=== PATIENT | female | born 1995 | race Caucasian/White ===

== ENCOUNTER → 2022-07-10 | Outpatient (CLI) | payer OTHER ==
--- NOTE | 2022-07-10 16:10 | US ---
EXAMINATION TYPE: Transabdominal DATE OF EXAM: 07/10/2022 3:35 PM COMPARISON: NONE CLINICAL HISTORY: Z36.89 CONFIRM GESTATIONAL AGE AND VIABILITY. EXAM PERFORMED: Transabdominal (TA) EXAM MEASUREMENTS: GESTATIONAL AGE / DATING Physician Established: (11 weeks/4 days) EDC: 01/25/2023 Dates by LMP: (11 weeks/4 days) EDC: 01/25/2023 Dates by First Scan: No previous this is first scan Dates by Current Scan for: (12 weeks/3 days) EDC: 01/19/2023 MATERNAL ANATOMY Uterus: 15.0 x 5.8 x 10.1cm Right Ovary: 2.4 x 1.5 x 1.6cm Left Ovary: 2.1 x 0.9 x 1.8cm Post CDS / Adnexa: wnl Presence of free fluid: no Presence of corpus luteal cyst: not seen Presence of subchorionic bleed: no GESTATION / SURVEY CRL: 5.8cm (12 weeks/3 days) Yolk Sac (normal less than 6mm): not seen Heart Rate: 169 bpm Rhythm: Normal IUP: Viable IUP Date of LMP: 04/20/2022 Beta HcG (if available): Not available at time of exam IMPRESSION: 1. Single intrauterine gestation estimated at 12 weeks 3 days gestation based on crown-rump length. C ardiac activity measuring 169 bpm.
== END | disposition home or self-care (01) ==
LOC: RADUSWWP 15:07
PROVIDERS: ATTEND Obstetrics & Gynecology
DX: Z36.89 Encounter for other specified antenatal screening (principal); Z3A.12 12 weeks gestation of pregnancy
CPT/HCPCS: 76801

== ENCOUNTER 2023-01-01 03:05 | Inpatient (IN) | payer OTHER ==
[2023-01-01] MEDS ORDERED: hydrALAZINE HCL 20 MG/ML 1 ML VIAL IVP PRN (03:50)
[2023-01-01] MEDS ORDERED: LABETALOL 5 MG/ML VIAL MDV IVP PRN ×3 (03:50)
[2023-01-01] MEDS ORDERED: MAGNESIUM SULFATE GM 6 GM in SODIUM CHLORIDE 0.9% 100 ML IVPB ONE (04:00)
[2023-01-01] MEDS: LACTATED RINGERS 1,000 ML IV SCH ×2 (04:36→15:20)
[2023-01-01 04:57] LABS: Basophils % (A) 0 %; Eosinophils # (A) 0.1 k/uL (0-0.7); Eosinophils % (A) 1 %; HCT 36.2 % (34.0-46.0); HGB 11.7 gm/dL (11.4-16.0); Lymphocytes # (A) 1.8 k/uL (1.0-4.8); Lymphocytes % (A) 10 %; MCH 28.6 pg (25.0-35.0); MCHC 32.4 g/dL (31.0-37.0); MCV 88.4 fL (80.0-100.0); Mean Platelet Volume 7.6; Monocytes % (A) 6 %; Neutrophils # (A) 13.6 k/uL (1.3-7.7); Neutrophils % (A) 81 %; Platelet Count 298 k/uL (150-450); RDW 13.2 % (11.5-15.5); WBC 16.7 k/uL (3.8-10.6)
[2023-01-01 05:00] LABS: Appearance,Urine Clear (Clear); Bilirubin,Urine Negative (Negative); Blood,Urine Negative (Negative); Color,Urine Light Yellow; Glucose,Urine (UA) Negative (Negative); Ketones,Urine Negative (Negative); Leukocyte Esterase,Urine Negative (Negative); Nitrite,Urine Negative (Negative); Protein,Urine Negative (Negative); Specific Gravity,Urine 1.006 (1.001-1.035); Urobilinogen,Urine <2.0 mg/dL (<2.0)
[2023-01-01] MEDS: MAGNESIUM SULFATE-WATER PMX 20 GM in WATER FOR INJECTION 1 500ML.BAG IV SCH ×2 (05:04→15:20)
[2023-01-01 05:10] LABS: INR 0.9 (<1.2); Prothrombin Time 9.6 sec (9.0-12.0)
[2023-01-01 05:12] LABS: ALT 19 U/L (4-34); African American GFR (CKD) >90 (>60 ml/min/1.73 sqM); Blood Urea Nitrogen 11 mg/dL (7-17); Non-African American GFR(CKD) >90 (>60 ml/min/1.73 sqM); Uric Acid 4.9 mg/dL (3.7-7.4)
[2023-01-01 05:14] LABS: Creatinine,Urine Random 26.5 mg/dL; Protein/Creatinine Ratio,Urine 0.415
[2023-01-01 05:22] LABS: AST 30 U/L (14-36); LDH 254 U/L (120-246)
[2023-01-01] MEDS ORDERED: OXYTOCIN 30 UNITS/500 ML NS 30 UNIT in SALINE 1 500ML.BAG IV SCH (06:15)
[2023-01-01] MEDS: BETAMET ACET-BETAMETH SOD PHOS 6 MG/ML MDV IM SCH (06:25)
[2023-01-01] MEDS ORDERED: DINOPROSTONE 10 MG INSERT.ER VAGINAL ONE (07:09)
--- NOTE | 2023-01-01 07:25 | P.HPOB ---
History of Present Illness H&P Date: 01/01/23 Chief Complaint: Hypertension This patient is a pleasant 27-year-old 1 para 0 female estimated date of confinement 01/25/2023 estimated gestational age 36-4/7 weeks who is admitted last evening by Dr. Jackson for hypertension. Patient states that she checked her blood pressure home was elevated 140/90. Patient subsequently came to labor and delivery was found to have significant blood pressure elevations consistent with severe criteria preeclampsia. Patient was given a dose of Celestone, placed on magnesium sulfate and was felt to be dilated 2 cm at the time so induction with Pitocin started. Cervix however my exam is closed, unable to break her water. care has been complicated by a questionable pericardial fluid seen at 26 weeks, however patient was referred to maternal- medicine and had a normal level III including heart views. Most recent ultrasound showed baby 6 lbs. 2 oz. with a mild left renal pelvis dilation of 10 mm. Patient's having some swelling but otherwise feeling fine. She is received 2 doses of antihypertensives and blood pressures now are within normal limits. Review of Systems Constitutional: Reports as per HPI Genitourinary: Reports Menstruation: Reports amenorrhea Past Medical History Past Medical History: No Reported History History of Any Multi-Drug Resistant Organisms: None Reported Past Surgical History: Cholecystectomy Past Anesthesia/Blood Transfusion Reactions: No Reported Reaction Past Psychological History: No Psychological Hx Reported Smoking Status: Never smoker Past Alcohol Use History: None Reported Past Drug Use History: None Reported Medications and Allergies Home Medications Medication Instructions Recorded Confirmed Type Vit No.179/Iron/Folic 1 each PO DAILY 01/01/23 01/01/23 History [ Tablet] Allergies Allergy/AdvReac Type Severity Reaction Status Date / Time No Known Allergies Allergy Verified 01/01/23 03:41 Exam Vital Signs Temp Pulse Resp BP Pulse Ox 01/01/23 06:15 96 16 136/79 01/01/23 05:15 106 H 16 157/82 01/01/23 05:00 103 H 160/107 01/01/23 04:45 93 16 145/92 99 01/01/23 04:30 98.4 F 104 H 16 144/92 99 01/01/23 03:30 97.4 F L 102 H 16 144/100 100 Intake and Output 12/31/22 01/01/23 01/01/23 22:59 06:59 14:59 Other: Weight 90.718 kg - OBG Physical Exam Abdomen: bowel sounds normal, no diffuse tenderness, no bruit present, no guarding noted, no hepatomegaly, no splenomegaly, no mass Vulva: both: normal Vagina: normal moisture, no discharge Cervix: no lesion (Cervix is closed and thick), no discharge Uterus: enlarged (Fundal height the office 37 cm) Results labs show she is B+, rubella nonimmune, RPR is nonreactive, hepatitis B and C were negative, HIV is nonreactive, Glucola was abnormal with a normal three-hour gtt., group B strep was negative, most recent ultrasound done last week showed the baby vertex 6 lbs. 2 oz. with some mild left renal pelvis dilation 10 mm Result Diagrams: 01/01/23 04:40 01/01/23 04:40 Abnormal Lab Results - Last 24 Hours (Table) 01/01/23 01/01/23 01/01/23 Range/Units 04:40 04:40 04:40 WBC 16.7 H (3.8-10.6) k/uL Neutrophils # 13.6 H (1.3-7.7) k/uL APTT 20.0 L (22.0-30.0) sec Lactate Dehydrogenase 254 H (120-246) U/L Assessment and Plan (1) 36 to 37 weeks gestation of Current Visit: Yes Status: Acute Code(s): [id number] - SNOMED Code(s): 3663 82539 (2) Severe pre-eclampsia Current Visit: Yes Status: Acute Code(s): O14.10 - SEVERE PRE-ECLAMPSIA, UNSPECIFIED TRIMESTER SNOMED Code(s): 60532779
--- NOTE | 2023-01-01 08:08 | P.MSEPDOC ---
Presenting Problems - Arrival Data Date of Arrival on Unit: 01/01/23 Time of Arrival on Unit: 03:05 Mode of Transport: Ambulatory - Complaint OB-Reason for Admission/Chief Complaint: Elevated Blood Pressure Comment: Dr. Jackson returned page. RN reported on maternal and status. contractions,. and vitals. RN reported to Dr. Jackson patient elevated BP 144/100 and elevated HR 102. New orders recieved to admit the patient, intitiate PreEclampsia protocol, 6G. mag bolus and 2G/hr after bolus. PIH labs drawn and urinalysis sent. Medical History - Information : 1 Para: 0 Term: 0 : 0 Abortions: Spontaneous or Elective: 0 Number of Living Children: 0 - Gestational Age Gestational Age by NAIF (wks/days): 36 Weeks and 4 Days Review of Systems - Review of Systems Constitutional: No problems Breast: No problems ENT: No problems Cardiovascular: No problems Respiratory: No problems Gastrointestinal: No problems Genitourinary: No problems Musculoskeletal: No problems Neurological: No problems Skin: No problems Vital Signs - Temperature Temperature: 98.4 F Temperature Source: Temporal Artery Scan - Pulse Pulse Oximetery Pulse Rate: 96 Pulse Assessment Method: Pulse Oximetry - Respirations Respiratory Rate: 16 Oxygen Delivery Method: Room Air - Blood Pressure Right Arm Blood Pressure: 136/79 Blood Pressure Mean: 98 Blood Pressure Source: Automatic Cuff Medical Screen Scoring - Assessment - Baby A Baseline FHR: 135 Heart Rate - NICHD Category: Category I (Normal) NST: Reactive Physician Notification - Physician Notified Physician Notified Date: 01/01/23 Physician Notified Time: 03:40 Physician: Dr. Jackson New Order Received: Yes (Admit, PIH workup) Maternal Triage Index - Maternal Triage Index Presenting for scheduled procedure w/no complaint: No - Stat/Priority 1 Stat Priority 1: No - Urgent/Priority 2 Urgent Priority 2: Yes Provider Notified: Dr. aJckson Provider Notified Time: 03:40 Criteria Met for Priority 2: Dr. Jackson returned page. RN reported on maternal and status. contractions,. and vitals. RN reported to Dr. Jackson patient elevated BP 144/100 and elevated HR 102. New orders recieved to admit the patient, intitiate PreEclampsia protocol, 6G. mag bolus and 2G/hr after bolus. PIH labs drawn and urinalysis sent. Disposition - Disposition OB Disposition: Admit I agree with the RN Medical Screening Exam: Yes Case reviewed; plan agreed upon as documented in EMR&OBIX.: Yes Diagnosis: SEVERE PRE-ECLAMPSIA, THIRD TRIMESTER
[2023-01-01] MEDS ORDERED: BUTORPHANOL 2 MG/ML 1 ML VIAL IV PRN (16:45)
--- NOTE | 2023-01-01 16:49 | P.PN ---
Progress Note - Text Progress Note Date: 01/01/23 heart tones are category 1. Blood pressures are stable 140s over 80s to 90s. I rechecked her cervix is fingertip but softer and patient is just becoming uncomfortable. Plan at this time is Dr. Yancey we'll recheck her in 2 hours when the Cervidil is completed. If able she'll proceed with artificial rupture membranes and Pitocin induction. Her cervix remains unfavorable we did discuss possible after the Celestone is completed. All the patient's questions are answered and she agrees with the clinical plan.
[2023-01-01] MEDS: ONDANSETRON 4 MG/2 ML VIAL IVP PRN ×2 (16:56→23:37)
[2023-01-02] MEDS: BETAMET ACET-BETAMETH SOD PHOS 6 MG/ML MDV IM SCH (00:23)
[2023-01-02] MEDS ORDERED: ACETAMINOPHEN IV (For NPO) 1,000 MG in EMPTY BAG 1 BAG IVPB ONE (00:37)
[2023-01-02] MEDS: MAGNESIUM SULFATE-WATER PMX 20 GM in WATER FOR INJECTION 1 500ML.BAG IV SCH ×3 (00:46→22:33)
[2023-01-02] MEDS: LACTATED RINGERS 1,000 ML IV SCH ×3 (03:07→20:43)
[2023-01-02] MEDS ORDERED: CITRIC ACID-SODIUM CITRATE 15 ML CUP PO ONE (06:19)
[2023-01-02] MEDS ORDERED: CARBOPROST TROMETHAMINE 250 MCG/ML 1 ML AMP IM PRN (06:19)
[2023-01-02] MEDS ORDERED: TRANEXAMIC ACID IN NACL,ISO-OS 1,000 MG in EMPTY BAG 1 BAG IV PRN (06:19)
[2023-01-02] MEDS ORDERED: OXYTOCIN 10 UNIT/ML 1 ML VIAL IM PRN (06:19)
[2023-01-02] MEDS ORDERED: miSOPROStoL 200 MCG TAB PO PRN (06:19)
--- NOTE | 2023-01-02 06:24 | P.PN ---
Progress Note - Text Progress Note Date: 01/02/23 Hospital day #2. Patient's Cervidil was removed last evening cervix is still not dilated. Blood pressures remain stable. heart tones are category 1. I discuss delivery plan at this time with the patient and since she has failed induction were going to proceed with section this time. Explained the procedure and risks. All patient questions are answered and a written consent is obtained.
[2023-01-02] MEDS ORDERED: ONDANSETRON 4 MG/2 ML VIAL ONE (07:14)
[2023-01-02] MEDS ORDERED: KETOROLAC 15 MG/ML 1 ML VIAL ONE (07:14)
[2023-01-02] MEDS ORDERED: fentaNYL (PF) 50 MCG/ML 2 ML AMP ONE (07:14)
[2023-01-02] MEDS ORDERED: DEXAMETHASONE SOD PHOSPHATE 4 MG/ML 1 ML VIAL ONE (07:14)
[2023-01-02] MEDS ORDERED: OXYTOCIN 10 UNIT/ML 1 ML VIAL ONE (07:14)
[2023-01-02] MEDS ORDERED: OXYTOCIN 30 UNITS/500 ML NS BAG IV ONE (07:14)
[2023-01-02] MEDS ORDERED: MORPHINE SULFATE (PF) 0.3 MG/0.3 ML SYR ONE (07:14)
[2023-01-02] MEDS ORDERED: diphenhydrAMINE 25 MG CAP PO PRN (08:04)
[2023-01-02] MEDS ORDERED: ONDANSETRON 4 MG/2 ML VIAL IVP PRN (08:04)
[2023-01-02] MEDS ORDERED: diphenhydrAMINE 50 MG/ML 1 ML VIAL IVP PRN (08:04)
[2023-01-02] MEDS ORDERED: NALOXONE 0.4 MG/ML 1 ML VIAL IV PRN ×2 (08:04→08:07)
[2023-01-02] MEDS ORDERED: OXYTOCIN 30 UNITS/500 ML NS 30 UNIT in SALINE 1 500ML.BAG IV SCH (08:04)
[2023-01-02] MEDS ORDERED: METOCLOPRAMIDE 5 MG/ML 2 ML VIAL IVP PRN (08:04)
[2023-01-02] MEDS ORDERED: LANOLIN CREAM 5 GM TUBE TOPICAL PRN (08:04)
[2023-01-02] MEDS ORDERED: ZOLPIDEM 5 MG TAB PO PRN (08:04)
[2023-01-02] MEDS ORDERED: MORPHINE SULFATE 2 MG/ML SYRINGE IVP PRN (08:07)
--- NOTE | 2023-01-02 08:08 | P.OP ---
Date of Procedure: 01/02/23 Preoperative Diagnosis: #1: 36-5/7 week intrauterine . #2: Preeclampsia with severe features. #3: Failed induction of labor Postoperative Diagnosis: Same Procedure(s) Performed: Primary low transverse section Anesthesia: spinal Surgeon: Elian Platt Shuttler #1: Samara Yancey Estimated Blood Loss (ml): 600 Pathology: other (Placenta) Condition: stable Disposition: floor Indications for Procedure: Please see dictated H&P for intimate details on this patient's admission. In brief summary this is a pleasant 27-year-old 1 para 0 female 36-5/7 weeks gestation who is admitted to labor and delivery yesterday for hyperten vi. Patient is diagnosed with preeclampsia with severe features and requires IV antihypertensives. Patient is placed on magnesium sulfate and has an unfavorable cervix therefore Cervidil was placed. Unfortunately the Cervidil does not produce any dilation of the cervix at this time is decided to proceed with delivery by section. Patient did receive 24 hours of Celestone. Patient does understand the surgery and risks and risks of infection, bleeding, possible injury bowel, bladder, vessels, and/or other organs. All the patient's questions are answered and a written consent is obtained. Operative Findings: This is a vigorous viable female Apgars 7 and 9 delivery time was 0734 hours. Infant has spontaneous respirations and good cry and grossly appears normal. Description of Procedure: This patient has a Parra catheter placed to straight drain. She is subsequently taken to the operating room where she sat up and spinal anesthetic is administered without incident. After the appropriate timeout, scalpels taken Pfannenstiel skin incision is made. A second scalpel is taken down the fascia the fascia scored with a knife. Fascial incision extended bilaterally using the Marc scissors. Fascia is then dissected off the rectus muscles sharply. Rectus muscles are the peritoneum identified and entered sharply. Peritoneal incision extended superior and inferior without difficulty. Bladder blade is then placed. Bladder peritoneum was taken sharply off the lower uterine segment. Scalpels and taken low transverse uterine incision is then made. Using a hemostat I enter the uterine cavity bluntly. There is loss of clear fluid. With this done the incision is then extended bluntly. Infant's head is then guided through the incision with fundal pressure delivered. Mouth and nares are bulb suctioned. There is no evidence of a nuchal cord. With more fundal pressure delivers the rest this infant's body. This is a vigorous viable female Apgars are 7 and 9 delivery time is 0734 hours. After delivery of the infant the is handed off to the nurses in attendance. The placenta i s then manually extracted intact. Uterus is then externalized uterine incision demarcated with Gill clamps. Uterine incision then closed using 0 Vicryl running locked fashion 2 layers. Excellent hemostasis is noted. One additional [id number] stitches placed in the midline for added hemostasis. Bladder peritoneum was then closed using a 3-0 Vicryl. Excess fluid is removed from the abdomen and pelvis. The uterus placed back in the abdomen. Uterus, tubes, ovaries appear normal for term gestation. The parietal peritoneum was then identified and closed using 0 Vicryl running fashion. Rectus muscle reapproximate 0 Vicryl interrupted fashion. Fascial incision closed using 0 PDS. Fascial incision is intact and hemostatic. Subcutaneous tissues and closed using a 3-0 Vicryl. Skin is and closed using aleida. All counts are correct 3. There are no complications. Infant is taken special care nursery for observation mother is taken to her birthing suite in satisfactory condition.
[2023-01-02] MEDS: ACETAMINOPHEN TAB 500 MG TAB PO SCH ×3 (13:34→22:34)
[2023-01-02] MEDS: SENNOSIDES-DOCUSATE SODIUM 1 EACH TAB PO SCH ×2 (13:36→20:50)
[2023-01-02] MEDS: KETOROLAC 15 MG/ML 1 ML VIAL IVP SCH ×2 (16:27→22:33)
[2023-01-03] MEDS: KETOROLAC 15 MG/ML 1 ML VIAL IVP SCH ×2 (00:22→06:43)
[2023-01-03] MEDS: LACTATED RINGERS 1,000 ML IV SCH ×2 (00:29→10:13)
[2023-01-03] MEDS: ACETAMINOPHEN TAB 500 MG TAB PO SCH ×4 (03:40→21:11)
[2023-01-03 05:46] LABS: Basophils % (A) 0 %; Eosinophils % (A) 0 %; HCT 29.7 % (34.0-46.0); Lymphocytes % (A) 6 %; MCH 28.7 pg (25.0-35.0); MCHC 33.4 g/dL (31.0-37.0); MCV 86.1 fL (80.0-100.0); Mean Platelet Volume 8.5; Monocytes % (A) 6 %; Neutrophils # (A) 15.6 k/uL (1.3-7.7); Neutrophils % (A) 86 %; Platelet Count 242 k/uL (150-450); RBC 3.45 m/uL (3.80-5.40); RDW 13.6 % (11.5-15.5); WBC 18.1 k/uL (3.8-10.6)
[2023-01-03 05:56] LABS: HGB 9.9 gm/dL (11.4-16.0)
--- NOTE | 2023-01-03 06:01 | P.PNOBGPC ---
Subjective - Subjective Patient reports: Reports appetite normal, Reports voiding normally, Reports pain well controlled, Reports ambulating normally : doing well, in NICU Objective - Vital Signs Latest vital signs: Vital Signs Temp Pulse Resp BP Pulse Ox 01/03/23 03:44 84 16 127/85 93 L 01/03/23 00:00 98.7 F 70 16 115/75 96 01/02/23 20:00 97.9 F 77 16 116/72 98 01/02/23 18:00 14 01/02/23 17:00 97 01/02/23 16:00 97.8 F 95 14 133/78 96 01/02/23 14:00 14 01/02/23 13:07 91 L 01/02/23 12:00 14 01/02/23 10:00 108 H 14 135/66 94 L 01/02/23 09:54 93 L 01/02/23 09:50 14 01/02/23 09:30 99.6 F 107 H 14 123/66 94 L 01/02/23 09:07 98 01/02/23 09:00 103 H 14 118/57 94 L 01/02/23 08:45 108 H 12 124/59 91 L 01/02/23 08:30 111 H 14 129/67 94 L 01/02/23 08:15 98.6 F 104 H 14 131/65 99 01/02/23 08:07 14 01/02/23 08:00 98.9 F 102 H 14 127/61 97 Intake and Output 01/02/23 01/02/23 01/03/23 14:59 22:59 06:59 Intake Total 500 Output Total 1244 875 Balance -744 871 Intake: Intake, IV Titration 500 Amount Magnesium Sulfate-Water 500 Pmx 20 gm In Water For Injection 1 500ml.bag @ 2 GM/HR 50 mls/hr IV .Q10H [facility] Rx#:[id number] Output: Urine 500 875 Uretheral (Parra) 425 Output, Quantitative 744 Blood Loss Other: # Voids 1 - Exam Lungs: bilateral: normal Chest: Normal S1, Normal S2 Extremities: Present: normal Abdomen: Present: normal appearance, soft. Absent: distention, tenderness Incision: Present: normal, dry, intact Uterus: Present: normal, firm - Labs Labs: Abnormal Lab Results - Last 24 Hours (Table) 01/03/23 Range/Units 05:23 WBC 18.1 H (3.8-10.6) k/uL RBC 3.45 L (3.80-5.40) m/uL Hgb 9.9 L D (11.4-16.0) gm/dL Hct 29.7 L (34.0-46.0) % Neutrophils # 15.6 H (1.3-7.7) k/uL Assessment and Plan Assessment: Postoperative day #1. Patient is resting without new complaints. Vital signs are stable she is afebrile. Uterus is firm nontender and her incision is intact and dry. She's having normal lochia. Patient is ambulating and urinating without difficulty. She is tolerating regular diet. Plan today is to call patient to shower, check a CBC, continue routine postoperative care. Since she's been afebrile for 24 hours and discontinue her antibiotics. (1) 36 to 37 weeks gestation of Current Visit: Yes Status: Acute Code(s): [id number] - SNOMED Code(s): 022814900 (2) Severe pre-eclampsia Current Visit: Yes Status: Acute Code(s): O14.10 - SEVERE PRE-ECLAMPSIA, UNSPECIFIED TRIMESTER SNOMED Code(s): 80347623
--- NOTE | 2023-01-03 06:18 | P.PN ---
Progress Note - Text Progress Note Date: 01/03/23 Postoperative day 1 status post section under spinal anesthesia and in trathecal Duramorph for postoperative analgesia.The patient is doing well. There are no other anesthesia related complications. The patient denies any paresthesia or weakness in the lower extremities. Patient has mild headache. Further management as per the patient primary team.
[2023-01-03] MEDS ORDERED: LABETALOL 100 MG TAB PO SCH (09:15)
--- NOTE | 2023-01-03 11:24 | P.CONS ---
History of Present Illness - Reason for Consult Consult date: 01/03/23 - History of Present Illness Patient is a 27 -year-old female with no significant past medical history pre sented at 36 weeks for hypertension, presented to the hospital her labor and delivery. Patient underwent on 01/02. [facility] was consulted due to persistent hypertension and hypoxia. Currently patient denies any significant chest pain, shortness of breath, cough, abdominal pain, nausea, vomiting, urinary or bowel complaints. She continues to use incentive spirometer. She denies any significant history of hypertension in the past. Her father had hypertension, but denies any other family history. This morning, blood pressure was 144/89, heart rate 90, temperature 98.7, resp iratory rate 18, saturating at 89% on room air. Laboratory workup showed WBC 18.1, hemoglobin 9.9, urinalysis was normal at the time of admission, renal function was also normal at the time of admission. Pertinent positives and negatives as discussed in HPI, a complete review of systems was performed and all other systems are negative. Patient seen and examined at bedside. Vital signs reviewed General: nontoxic, no distress, appears at stated age Derm: warm, dry Head: atraumatic, normocephalic, symmetric Eyes: EOMI, no lid lag, anicteric sclera, pupils equal round reactive to light ENT: Nose and ears atraumatic Neck: No thyromegaly, supple Mouth: no lip lesion, mucus membranes moist Cardiovascular: S1S2 reg, no murmur, 2+ pitting edema Lungs: clear to auscultation bilateral, no rhonchi, no rales, no wheeze, no accessory muscle use Abdominal: soft, distended, nontender to palpation, no guarding, no appreciable organomegaly Ext: no gross muscle atrophy, muscle strength muscle strength 5 out of 5 in all 4 extremities, no contractures Neuro: CN II-XII grossly intact Psych: Alert, oriented, appropriate affect Assessment/Plan: Acute hypoxic respiratory failure Gestational hypertension Leukocytosis, likely reactive Acute normocytic anemia, likely expected outcome of and -Chest x-ray ordered this morning, personally interpreted, shows no opacities, vascular congestion or pleural effusion, official read pending -Hypoxia possibly related to atelectasis in the setting of , encouraged patient to use incentive spirometer -Leukocytosis likely reactive, patient denies any cough or sputum production, likely to be pneumonia -Gestational hypertension being managed by OB, currently on labetalol 100 mg by mouth twice a day, continue Thank you for allowing us to participate in the care of this pleasant patient. Do not hesitate to contact us with questions. Someone can be reached from the [facility] hospitalist group all hours of the day at [phone] or via [employer]. Past Medical History Past Medical History: No Reported History History of Any Multi-Drug Resistant Organisms: None Reported Past Surgical History: Cholecystectomy Past Anesthesia/Blood Transfusion Reactions: No Reported Reaction Past Psychological History: No Psychological Hx Reported Smoking Status: Never smoker Past Alcohol Use History: None Reported Past Drug Use History: None Reported Medications and Allergies Home Medications Medication Instructions Recorded Confirmed Type Vit No.179/Iron/Folic 1 each PO DAILY 01/01/23 01/01/23 History [ Tablet] Allergies Allergy/AdvReac Type Severity Reaction Status Date / Time No Known Allergies Allergy Verified 01/01/23 03:41 Physical Exam Vitals: Vital Signs Temp Pulse Resp BP Pulse Ox 01/03/23 08:40 90 18 144/89 89 L 01/03/23 08:00 98.7 F 94 17 149/91 90 L 01/03/23 03:44 84 16 127/85 93 L 01/03/23 00:00 98.7 F 70 16 115/75 96 01/02/23 20:00 97.9 F 77 16 116/72 98 01/02/23 18:00 14 01/02/23 17:00 97 01/02/23 16:00 97.8 F 95 14 133/78 96 01/02/23 14:00 14 01/02/23 13:07 91 L 01/02/23 12:00 14 Intake and Output 01/02/23 01/03/23 01/03/23 22:59 06:59 14:59 Output Total 875 Balance -875 Output: Urine 875 Uretheral (Parra) 425 Other: # Voids 1 1 Results CBC & Chem 7: 01/03/23 05:23 01/01/23 04:40 Labs: Abnormal Lab Results - Last 24 Hours (Table) 01/03/23 Range/Units 05:23 WBC 18.1 H (3.8-10.6) k/uL RBC 3.45 L (3.80-5.40) m/uL Hgb 9.9 L D (11.4-16.0) gm/dL Hct 29.7 L (34.0-46.0) % Neutrophils # 15.6 H (1.3-7.7) k/uL
--- NOTE | 2023-01-03 11:29 | XR ---
EXAMINATION TYPE: XR chest 2V DATE OF EXAM: 01/03/2023 COMPARISON: None HISTORY: 27-year-old female hypoxia and shortness of breath TECHNIQUE: Frontal and lateral views FINDINGS: The cardiomediastinal silhouette, aorta, and pulmonary vasculature are within normal limits. Large ba ndlike area of atelectasis left perihilar midlung. No consolidation or pleural effusion otherwise see n. IMPRESSION: Large bandlike perihilar atelectasis on the left. Otherwise, no definite acute process.
[2023-01-03] MEDS: IBUPROFEN 600 MG TAB PO SCH ×3 (12:37→23:55)
[2023-01-03] MEDS: SENNOSIDES-DOCUSATE SODIUM 1 EACH TAB PO SCH ×2 (15:00→21:10)
[2023-01-03] MEDS: LABETALOL 200 MG TAB PO SCH (21:11)
[2023-01-04] MEDS ORDERED: IBUPROFEN 600 MG TAB PO SCH
[2023-01-04] MEDS: ACETAMINOPHEN TAB 500 MG TAB PO SCH ×4 (03:04→20:53)
[2023-01-04] MEDS ORDERED: MEASLES-MUMPS-RUBELLA VACC/PF 12,500 UNIT/0.5 ML VIAL SQ ONE (05:29)
[2023-01-04 05:51] LABS: Basophils % (A) 0 %; Eosinophils # (A) 0.2 k/uL (0-0.7); Eosinophils % (A) 1 %; HGB 10.7 gm/dL (11.4-16.0); Lymphocytes % (A) 15 %; MCH 29.1 pg (25.0-35.0); MCHC 33.3 g/dL (31.0-37.0); MCV 87.3 fL (80.0-100.0); Mean Platelet Volume 7.6; Monocytes # (A) 0.8 k/uL (0-1.0); Monocytes % (A) 6 %; Neutrophils # (A) 9.7 k/uL (1.3-7.7); Neutrophils % (A) 75 %; Platelet Count 243 k/uL (150-450); RBC 3.67 m/uL (3.80-5.40); RDW 13.2 % (11.5-15.5); WBC 13.1 k/uL (3.8-10.6)
--- NOTE | 2023-01-04 05:58 | P.PNOBGPC ---
Subjective - Subjective Patient reports: Reports appetite normal, Reports voiding normally, Reports pain well controlled, Reports ambulating normally : doing well, in NICU Objective - Vital Signs Latest vital signs: Vital Signs Temp Pulse Resp BP Pulse Ox 01/03/23 23:58 97.5 F L 79 16 142/91 95 01/03/23 20:00 97.4 F L 77 16 152/97 96 01/03/23 16:30 98.0 F 92 16 143/95 94 L 01/03/23 12:00 98.1 F 84 18 136/92 95 01/03/23 08:40 90 18 144/89 89 L 01/03/23 08:00 98.7 F 94 17 149/91 90 L Intake and Output 01/03/23 01/03/23 01/04/23 14:59 22:59 06:59 Other: Voiding Method Toilet # Voids 1 2 1 - Exam Lungs: bilateral: normal Chest: Normal S1, Normal S2 Extremities: Present: normal Abdomen: Present: normal appearance, soft. Absent: distention, tenderness Incision: Present: normal, dry, intact Uterus: Present: normal, firm - Labs Labs: Abnormal Lab Results - Last 24 Hours (Table) 01/03/23 01/04/23 Range/Units 05:23 05:19 WBC 18.1 H 13.1 H (3.8-10.6) k/uL RBC 3.45 L 3.67 L (3.80-5.40) m/uL Hgb 9.9 L D 10.7 L (11.4-16.0) gm/dL Hct 29.7 L 32.0 L (34.0-46.0) % Neutrophils # 15.6 H 9.7 H (1.3-7.7) k/uL Assessment and Plan Assessment: Postoperative day #2. Patient is resting without new complaints. Blood pressures are running 140s over 90s she did have 1 that was 150/90. I increased her labetalol to 200 twice a day. She was having some low saturations and therefore we had medicine see her and chest x-ray was consistent just with some atelectasis. CBC today appears normal. Patient is ambulating and urinating without difficulty. Plan today is to continue routine care. We'll continue to watch her blood pressures and change medications as needed. (1) 36 to 37 weeks gestation of Current Visit: Yes Status: Acute Code(s): [id number] - SNOMED Code(s): 611819222 (2) Severe pre-eclampsia Current Visit: Yes Status: Acute Code(s): O14.10 - SEVERE PRE-ECLAMPSIA, UNSPECIFIED TRIMESTER SNOMED Code(s): 24358766
[2023-01-04] MEDS: IBUPROFEN 600 MG TAB PO SCH ×3 (06:04→18:15)
[2023-01-04] MEDS: SENNOSIDES-DOCUSATE SODIUM 1 EACH TAB PO SCH ×2 (08:40→20:41)
[2023-01-04] MEDS: LABETALOL 200 MG TAB PO SCH ×2 (08:40→20:52)
--- NOTE | 2023-01-04 12:33 | P.PN ---
Subjective Progress Note Date: 01/04/23 Subjective: Patient seen and examined at bedside. No acute events overnight. Denies any chest pain, shortness of breath, abdominal pain, nausea, vomiting, urinary or bowel complaints. Pertinent positives and negatives as discussed above, a complete review of systems was performed and all other systems are negative. Vitals Signs Reviewed. General: nontoxic, no distress, appears at stated age Derm: warm, dry Head: atraumatic, normocephalic, symmetric Eyes: EOMI, no lid lag, anicteric sclera Mouth: no lip lesion, mucus membranes moist Cardiovascular: S1S2 reg, no murmur Lungs: CTA bilateral, no rhonchi, no rales , no accessory muscle use Abdominal: soft, distended abdomen, nontender to palpation, no guarding, no appreciable organomegaly Ext: no gross muscle atrophy, no edema, no contractures Neuro: CN II-XI grossly intact, no focal neuro deficits Psych: Alert, oriented, appropriate affect Data Reviewed Today: Pertinent Labs: WBC 13.1, hemoglobin 10.7 Assessment and Plan: Acute hypoxic respiratory failure, secondary to atelectasis, resolved Gestational hypertension Leukocytosis, likely reactive, resolving Acute normocytic anemia, improving, likely expected outcome of and C- section -Encouraged patient to continue incentive spirometer -Gestational hypertension being managed by OB, still uncontrolled, labetalol increased to 200 mg twice a day Thank you for allowing us to participate in the care of this pleasant patient. Do not hesitate to contact us with questions. Someone can be reached from the [facility] hospitalist group all hours of the day at [phone] or via perfect serve. Objective - Vital Signs Vital signs: Vital Signs Temp 98.2 F 01/04/23 08:00 Pulse 68 01/04/23 08:00 Resp 18 01/04/23 08:00 BP 131/87 01/04/23 08:00 Pulse Ox 96 01/04/23 06:00 FiO2 Intake & Output 01/03/23 01/04/23 01/04/23 18:59 06:59 18:59 Intake Total 400 Balance 400 Intake: Oral 400 Other: Voiding Method Toilet # Voids 2 1 - Labs CBC & Chem 7: 01/04/23 05:19 01/01/23 04:40 Labs: Abnormal Lab Results - Last 24 Hours (Table) 01/04/23 Range/Units 05:19 WBC 13.1 H (3.8-10.6) k/uL RBC 3.67 L (3.80-5.40) m/uL Hgb 10.7 L (11.4-16.0) gm/dL Hct 32.0 L (34.0-46.0) % Neutrophils # 9.7 H (1.3-7.7) k/uL
[2023-01-05] MEDS: IBUPROFEN 600 MG TAB PO SCH ×4 (00:08→18:02)
[2023-01-05] MEDS ORDERED: LABETALOL 200 MG TAB PO STA (01:24)
[2023-01-05] MEDS: ACETAMINOPHEN TAB 500 MG TAB PO SCH ×4 (03:04→22:01)
--- NOTE | 2023-01-05 07:56 | P.PNOBGPC ---
Subjective - Subjective Patient reports: Reports appetite normal, Reports voiding normally, Reports pain well controlled, Reports ambulating normally : doing well, in NICU Objective - Vital Signs Latest vital signs: Vital Signs Temp Pulse Resp BP Pulse Ox 01/05/23 07:30 98 F 52 L 16 146/90 01/05/23 02:45 159/106 01/05/23 01:40 158/103 01/04/23 23:27 98.4 F 58 L 16 149/97 97 01/04/23 20:00 98.0 F 63 16 152/97 97 01/04/23 16:00 98.3 F 75 18 141/100 01/04/23 08:00 98.2 F 68 18 131/87 Intake and Output 01/04/23 01/05/23 01/05/23 22:59 06:59 14:59 Intake Total 200 200 Balance 200 200 Intake: Oral 200 200 Other: # Voids 1 - Exam Lungs: bilateral: normal Chest: Normal S1, Normal S2 Extremities: Present: normal Abdomen: Present: normal appearance, soft. Absent: distention, tenderness Incision: Present: normal, dry, intact Uterus: Present: normal, firm Assessment and Plan Assessment: Postoperative day #3. Patient is resting without complaints. Blood pressures yesterday began to increase to 150s over 100's, therefore I increased her labetalol to 300 mg by mouth twice a day. Due to persistent blood pressure elevation I'm going to begin Procardia 30 mg XL today. Her incision is intact and dry. She is ambulating and urinating without difficulty. Plan today is to continue routine care, watch her blood pressures closely and adjust medications as indicated. (1) 36 to 37 weeks gestation of Current Visit: Yes Status: Acute Code(s): [id number] - SNOMED Code(s): 934131810 (2) Severe pre-eclampsia Current Visit: Yes Status: Acute Code(s): O14.10 - SEVERE PRE-ECLAMPSIA, UNSPECIFIED TRIMESTER SNOMED Code(s): 97793347
--- NOTE | 2023-01-05 09:25 | P.PN ---
Subjective Progress Note Date: 01/05/23 Patient is a 27-year-old female who was admitted with severe preeclampsia and delivered via on 01/02/23. Patient seen and examined at bedside. She denies any headache, chest pain, shortness of breath, or double vision. We discussed that fluid optimization may help to better regulate her diastolic hypertension. We discussed the hydrochlorothiazide is safe to use during breast-feeding but can sometimes decreased supply with a fluid shift. She is okay with this and would like to try a dose of hydrochlorothiazide to optimize blood pressures. Vital signs reviewed General: nontoxic, no distress, appears at stated age Cardiovascular: S1S2 reg, no murmur, positive posterior tibial pulse bilateral, Lungs: CTA bilateral, no rhonchi, no rales , no accessory muscle use Ext: no gross muscle atrophy, 2+ edema, no contractures Neuro: CN II-XI grossly intact, no focal neuro deficits Psych: Alert, oriented, appropriate affect Assessment: Acute hypoxic respiratory failure, resolved Preeclampsia, currently in breast-feeding Leukocytosis, reactive and improving Normocytic anemia anticipated outcome of and Data Review: Blood pressures reviewed from overnight and current blood pressure 146/90 blood pressure high was 158/103 overnight. Plan: -Hydrochlorothiazide 12.5 mg by mouth 1 now. Recheck blood pressures in 2 hours. - Discussed with nursing will hold off on administering nifedipine at this time and continue with labetalol. Will monitor heart rate. If blood pressure remains elevated 2 hours after hydrochlorothiazide will consider dosing nifedipine. Thank you for allowing us to participate in the care of this pleasant patient. Do not hesitate to contact us with questions. Someone can be reached from the [facility] hospitalist group all hours of the day at [phone] or via [employer]. This dictation was prepared using [employer] voice recognition software. Though every attempt is made to correct errors during during dictation some may still exist. Objective - Vital Signs Vital signs: Vital Signs Temp 98 F 01/05/23 07:30 Pulse 52 L 01/05/23 07:30 Resp 16 01/05/23 07:30 BP 146/90 01/05/23 07:30 Pulse Ox 97 01/04/23 23:27 FiO2 Intake & Output 01/04/23 01/05/23 01/05/23 18:59 06:59 18:59 Intake Total 600 200 Balance 600 200 Intake: Oral 600 200 Other: # Voids 1 - Labs CBC & Chem 7: 01/04/23 05:19 01/01/23 04:40
[2023-01-05] MEDS ORDERED: hydroCHLOROthiazide 12.5 MG CAP PO ONE (09:30)
[2023-01-05 09:37] LABS: Basophils % (A) 0 %; Eosinophils # (A) 0.3 k/uL (0-0.7); Eosinophils % (A) 3 %; HCT 34.7 % (34.0-46.0); HGB 11.3 gm/dL (11.4-16.0); Lymphocytes # (A) 1.6 k/uL (1.0-4.8); Lymphocytes % (A) 15 %; MCH 28.4 pg (25.0-35.0); MCHC 32.4 g/dL (31.0-37.0); MCV 87.5 fL (80.0-100.0); Mean Platelet Volume 7.5; Monocytes # (A) 0.5 k/uL (0-1.0); Monocytes % (A) 5 %; Neutrophils # (A) 7.6 k/uL (1.3-7.7); Neutrophils % (A) 74 %; Platelet Count 269 k/uL (150-450); RBC 3.97 m/uL (3.80-5.40); RDW 12.7 % (11.5-15.5); WBC 10.3 k/uL (3.8-10.6)
[2023-01-05] MEDS: SENNOSIDES-DOCUSATE SODIUM 1 EACH TAB PO SCH ×2 (09:38→20:54)
[2023-01-05] MEDS: LABETALOL 100 MG TAB PO SCH ×2 (09:38→20:55)
[2023-01-05] MEDS: NIFEdipine XL 30 MG TAB.ER.24 PO SCH (12:30)
[2023-01-06] MEDS: IBUPROFEN 600 MG TAB PO SCH ×4 (01:03→20:58)
[2023-01-06] MEDS: ACETAMINOPHEN TAB 500 MG TAB PO SCH ×3 (04:50→20:25)
--- NOTE | 2023-01-06 07:12 | P.PNOBGPC ---
Subjective - Subjective Patient reports: Reports appetite normal, Reports voiding normally, Reports pain well controlled, Reports ambulating normally : doing well, in NICU Objective - Vital Signs Latest vital signs: Vital Signs Temp Pulse Resp BP Pulse Ox 01/06/23 04:00 97.6 F 69 16 151/97 98 01/06/23 00:00 98.6 F 66 16 143/85 01/05/23 20:00 97.6 F 79 16 142/93 97 01/05/23 15:00 98.7 F 55 L 18 150/96 01/05/23 11:57 66 145/91 01/05/23 10:12 156/92 01/05/23 07:30 98 F 52 L 16 146/90 Intake and Output 01/05/23 01/06/23 01/06/23 22:59 06:59 14:59 Intake Total 200 Balance 200 Intake: Oral 200 Other: # Voids 1 - Exam Lungs: bilateral: normal Chest: Normal S1, Normal S2 Extremities: Present: normal Abdomen: Present: normal appearance, soft. Absent: distention, tenderness Incision: Present: normal, dry, intact Uterus: Present: normal, firm - Labs Labs: Abnormal Lab Results - Last 24 Hours (Table) 01/05/23 Range/Units 09:07 Hgb 11.3 L (11.4-16.0) gm/dL Assessment and Plan Assessment: Postoperative day #4. Patient is feeling well without new complaints however blood pressures continue to be elevated. They are improved from yesterday however. I did start Procardia yesterday and this seems to be helping. Incision is intact and dry. Patient does not have a primary care physician as an outpatient due to them leaving. Plan today is to continue current medication regimen. If her blood pressures remain stable, plan on discharge home tomorrow and I'll continue to take care of her as an outpatient. Medicine is following as well. Plan today is to continue routine care and continue to watch/manage hypertension. I discuss this management plan with the patient and her are in agreement at this time. (1) 36 to 37 weeks gestation of Current Visit: Yes Status: Acute Code(s): IIR1926 - SNOMED Code(s): 893152841 (2) Severe pre-eclampsia Current Visit: Yes Status: Acute Code(s): O14.10 - SEVERE PRE-ECLAMPSIA, UNSPECIFIED TRIMESTER SNOMED Code(s): 73671155
[2023-01-06] MEDS: LABETALOL 100 MG TAB PO SCH ×2 (09:22→20:59)
[2023-01-06] MEDS: NIFEdipine XL 30 MG TAB.ER.24 PO SCH (09:22)
--- NOTE | 2023-01-06 11:04 | P.PN ---
Subjective Progress Note Date: 01/06/23 (Delayed charting patient seen at approximately 0905) Patient is a 27-year-old female who was admitted with severe preeclampsia and delivered via on 01/02/23. Patient seen and examined at bedside. She is feeling well. Edema has resolved. She denies any chest pain, shortness breath, headache, lightheadedness, dizziness, double vision. We discussed that her blood pressure was high this morning and then I will continue to follow the blood pressures as they're obtained throughout the day and if her blood pressure remains elevated and heart rate remains above 60 we'll considering increasing labetalol to 400 in the morning and at night. Vital signs reviewed General: nontoxic, no distress, appears at stated age Cardiovascular: S1S2 reg, no murmur, positive posterior tibial pulse bilateral, Lungs: CTA bilateral, no rhonchi, no rales , no accessory muscle use Ext: no gross muscle atrophy, no edema, no contractures Neuro: CN II-XI grossly intact, no focal neuro deficits Psych: Alert, oriented, appropriate affect Assessment: Acute hypoxic respiratory failure, resolved Preeclampsia, currently breast-feeding Leukocytosis, reactive and improving Normocytic anemia anticipated outcome of and Data Review: Vitals reviewed temperature 97.5, respirations 79, blood pressure 143/101 systolic high in the last 24 hours 156, diastolic in the last 24 hours 101 Plan: - Conitnue with procardia 30 mg daily and labetalol 300 mg TID if BP remains elevated and HR remains above 60 consider increasing labetalol to 400 mg BID, I will follow-up on afternoon blood pressures. She does not have PCP but will follow with Dr. Denton for her BP until able to establish with a PCP. If BP remains elevated after the post period then she should have a work-up as an outpatient for secondary causes of HTN. Consider establishing with Preston Sanchez in [place]. Added to Discharge tab. Thank you for allowing us to participate in the care of this pleasant patient. Do not hesitate to contact us with questions. Someone can be reached from the [facility] hospitalist group all hours of the day at [phone] or via perfect serve. This dictation was prepared using [employer] voice recognition software. Though every attempt is made to correct errors during during dictation some may still exist. Objective - Vital Signs Vital signs: Vital Signs Temp 97.5 F L 01/06/23 08:00 Pulse 79 01/06/23 08:00 Resp 14 01/06/23 08:00 BP 143/101 01/06/23 08:00 Pulse Ox 98 01/06/23 04:00 FiO2 Intake & Output 01/05/23 01/06/23 01/06/23 18:59 06:59 18:59 Intake Total 400 Balance 400 Intake: Oral 400 Other: # Voids 1 - Labs CBC & Chem 7: 01/05/23 09:07 01/01/23 04:40
[2023-01-06] MEDS: SENNOSIDES-DOCUSATE SODIUM 1 EACH TAB PO SCH ×2 (12:13→20:53)
[2023-01-07] MEDS: ACETAMINOPHEN TAB 500 MG TAB PO SCH ×2 (00:15→06:41)
[2023-01-07] MEDS: IBUPROFEN 600 MG TAB PO SCH ×2 (03:48→09:34)
--- NOTE | 2023-01-07 06:22 | P.PNOBGPC ---
Subjective - Subjective Patient reports: Reports appetite normal, Reports voiding normally, Reports pain well controlled, Reports ambulating normally : doing well, in NICU Objective - Vital Signs Latest vital signs: Vital Signs Temp Pulse Resp BP Pulse Ox 01/07/23 03:51 97.6 F 73 16 144/88 98 01/07/23 00:00 98.3 F 67 16 131/88 97 01/06/23 20:00 98.2 F 89 16 148/96 98 01/06/23 17:30 97.9 F 77 16 144/94 98 01/06/23 12:00 98 F 76 14 129/86 01/06/23 08:00 97.5 F L 79 14 143/101 Assessment and Plan Assessment: Postoperative day #5. Patient is resting without new complaints does wish to go home. Blood pressures are improved and stable for her to be discharge home. Blood pressures are 130 to 140 over 80s to 90s. Patient's incision is intact and dry. She is ambulating and urinating without difficulty. Patient's felt be stable for discharge home follow up me later this week for an incision and blood pressure check. Instructed to call if she has any other concerns. (1) 36 to 37 weeks gestation of Current Visit: Yes Status: Acute Code(s): [id number] - SNOMED Code(s): 617007631 (2) Severe pre-eclampsia Current Visit: Yes Status: Acute Code(s): O14.10 - SEVERE PRE-ECLAMPSIA, UNSPECIFIED TRIMESTER SNOMED Code(s): 03356919
--- NOTE | 2023-01-07 06:27 | P.DS ---
Providers Date of admission: 01/01/23 03:55 Expected date of discharge: 01/07/23 Attending physician: Elian Platt Consults: 01/03/23 09:05 Consult Physician Urgent Consulting Provider: Darion Lopes Consult Reason/Comments: elevated bp, sob Do you want consulting provider notified?: Yes Primary care physician: Stated None - Discharge Diagnosis(es) (1) 36 to 37 weeks gestation of Current Visit: Yes Status: Acute (2) Severe pre-eclampsia Current Visit: Yes Status: Acute Hospital Course: Please see dictated H&P for intimate details of this patient's admission. Brief summary this is a pleasant 27-year-old 1 para 0 female 36-4/7 weeks who is admitted to labor and delivery with hypertension and diagnosed with preeclampsia, with severe features. Patient subsequently undergoes a primary low transverse section for viable female infant due to failed induction. Patient was on magnesium sulfate prior and post delivery. Patient did develop some low sats and medicine was consult and felt to be atelectasis. Patient also began developing significant hypertension requiring 2 antihypertensives to control. By postoperative day #5 her blood pressure was felt to be stable for discharge home follow up with me within the week for blood pressure check and incision check. Procedures: Primary low transverse section Patient Condition at Discharge: Good Plan - Discharge Summary New Discharge Prescriptions: New Ibuprofen [Motrin] 600 mg PO Q6HR #40 tab oxyCODONE HCL [OxyIR] 5 mg PO Q4HR PRN #18 tab PRN Reason: Pain Scale 4 - 6 NIFEdipine XL [Procardia XL] 30 mg PO DAILY #30 tab Labetalol [Trandate] 300 mg PO BID 30 Days #180 tab No Action Vit No.179/Iron/Folic [ Tablet] 1 each PO DAILY Discharge Medication List Vit No.179/Iron/Folic [ Tablet] 1 each PO DAILY 01/01/23 [History] Ibuprofen [Motrin] 600 mg PO Q6HR #40 tab 01/05/23 [Rx] Labetalol [Trandate] 300 mg PO BID 30 Days #180 tab 01/05/23 [Rx] NIFEdipine XL [Procardia XL] 30 mg PO DAILY #30 tab 01/05/23 [Rx] oxyCODONE HCL [OxyIR] 5 mg PO Q4HR PRN #18 tab 01/05/23 [Rx] Follow up Appointment(s)/Referral(s): Preston Sanchez NPC [REFERRING] - 1 Week ( Could consider establishing with this clinic for your primary care) Elian Platt MD [STAFF PHYSICIAN] - 02/12/23 10:30 am (Please see me on Saturday01-11-2023 at 09:15am for an incision check and blood pressure check) Patient Instructions/Handouts: (DC), Preeclampsia During (DC) Activity/Diet/Wound Care/Special Instructions: No heavy lifting or strenuous activities for 6 weeks. Please call if any fever, chills, excessive vaginal bleeding, and/or abdominal pain. Discharge Disposition: HOME SELF-CARE
[2023-01-07 08:29] VITALS: BP 147/87; PULSE 91; RESP 18; TEMP 98.6
[2023-01-07] MEDS: SENNOSIDES-DOCUSATE SODIUM 1 EACH TAB PO SCH (08:58)
[2023-01-07] MEDS: NIFEdipine XL 30 MG TAB.ER.24 PO SCH (09:01)
[2023-01-07] MEDS: LABETALOL 100 MG TAB PO SCH (09:01)
--- NOTE | 2023-01-07 10:42 | P.PN ---
Subjective Progress Note Date: 01/07/23 Patient is a 27-year-old female who was admitted with severe preeclampsia and delivered via on 01/02/23. Patient seen and examined at bedside. Doing well, no chest pain, SOB. Worried about going home without the baby being ready for discharge. Vital signs reviewed General: nontoxic, no distress, appears at stated age Cardiovascular: S1S2 reg, no murmur, positive posterior tibial pulse bilateral, Lungs: CTA bilateral, no rhonchi, no rales , no accessory muscle use Psych: Alert, oriented, appropriate affect Assessment: Preeclampsia, currently breast-feeding Acute hypoxic respiratory failure, resolved Leukocytosis, resolved Normocytic anemia anticipated outcome of and Data Review: Vital signs reviewed. This morning temperature 98.6, pulse 91, respirations 18, blood pressure is 87. The last 12 hours her systolic max has been 148 and diastolic has been 96. Plan: - Continue with procardia 30 mg daily and labetalol 300 mg BID if BP. She will establish with a PCP of her choice after discharge. She will take BP once daily after her meds and make a log to bring to Dr. Platt's appointment. She will br ing her BP cuff to the appointment to validate its accuracy. She is aware to call if she develops dizziness or lightheadedness. Thank you for allowing us to participate in the care of this pleasant patient. Do not hesitate to contact us with questions. Someone can be reached from the [facility] hospitalist group all hours of the day at [phone] or via [employer]. This dictation was prepared using [employer] voice recognition software. Though every attempt is made to correct errors during during dictation some may still exist. Objective - Vital Signs Vital signs: Vital Signs Temp 98.6 F 01/07/23 08:00 Pulse 91 01/07/23 08:00 Resp 18 01/07/23 08:00 BP 147/87 01/07/23 08:00 Pulse Ox 98 01/07/23 03:51 FiO2 - Labs CBC & Chem 7: 01/05/23 09:07 01/01/23 04:40
== END 2023-01-07 11:55 | disposition home or self-care (01) | DRG 540 ==
LOC: FBPOP 03:05 → 4FBP 03:55 → OBSVTOIN 03:55
PROVIDERS: ADMIT Obstetrics & Gynecology; ATTEND Obstetrics & Gynecology
PROC: 3E033VJ Introduction of Other Hormone into Peripheral Vein, Percutaneous Approach (ICD-10-PCS; 2023-01-01)
PROC: 3E0P7VZ Introduction of Hormone into Female Reproductive, Via Natural or Artificial Opening (ICD-10-PCS; 2023-01-02)
PROC: 10D00Z1 Extraction of Products of Conception, Low, Open Approach (ICD-10-PCS; principal; 2023-01-02 07:30)
DX: O14.14 Severe pre-eclampsia complicating childbirth (principal); J96.01 Acute respiratory failure with hypoxia; Z37.0 Single live birth; O16.4 Unspecified maternal hypertension, complicating childbirth; D72.828 Other elevated white blood cell count; O61.0 Failed medical induction of labor; J98.11 Atelectasis; O90.81 Anemia of the puerperium; D64.89 Other specified anemias; Z3A.36 36 weeks gestation of pregnancy; Z28.310 Unvaccinated for COVID-19; Z82.49 Family history of ischemic heart disease and other diseases of the circulatory system
CPT/HCPCS: 59025; 71046; 81003; 82565; 82570; 83615; 84156; 84450; 84460; 84520; 84550; 85025; 85610; 85730; 86850; 86900; 86901; 88307; 90707; 99215

== ENCOUNTER 2024-08-10 14:40 | Inpatient (IN) | payer OTHER ==
[2024-08-10] MEDS ORDERED: TRANEXAMIC 1,000 MG/100ML-NACL 1,000 MG in EMPTY BAG 1 BAG IV PRN (15:00)
[2024-08-10] MEDS ORDERED: METHYLERGONOVINE 0.2 MG/ML 1 ML AMP IM PRN (15:00)
[2024-08-10] MEDS ORDERED: CARBOPROST TROMETHAMINE 250 MCG/ML 1 ML AMP IM PRN (15:00)
[2024-08-10] MEDS ORDERED: miSOPROStoL 200 MCG TAB PO PRN (15:00)
[2024-08-10] MEDS ORDERED: OXYTOCIN 30 UNITS/500 ML NS 30 UNIT in SALINE 1 500ML.BAG IV SCH ×2 (15:00→17:30)
[2024-08-10] MEDS ORDERED: OXYTOCIN 10 UNIT/ML 1 ML VIAL IM PRN (15:00)
[2024-08-10 15:24] LABS: Basophils % (A) 0 %; Eosinophils # (A) 0.1 k/uL (0-0.7); Eosinophils % (A) 1 %; HCT 32.2 % (34.0-46.0); HGB 10.7 gm/dL (11.4-16.0); Lymphocytes % (A) 17 %; MCH 28.1 pg (25.0-35.0); MCHC 33.3 g/dL (31.0-37.0); MCV 84.4 fL (80.0-100.0); Monocytes # (A) 0.5 k/uL (0-1.0); Monocytes % (A) 4 %; Neutrophils # (A) 8.5 k/uL (1.3-7.7); Neutrophils % (A) 76 %; Platelet Count 315 k/uL (150-450); RBC 3.81 m/uL (3.80-5.40); WBC 11.3 k/uL (3.8-10.6)
[2024-08-10 15:29] LABS: INR 0.9 (<1.2); Prothrombin Time 10.5 sec (10.0-12.5)
[2024-08-10] MEDS: LACTATED RINGERS 1,000 ML IV SCH (15:37)
[2024-08-10 15:40] LABS: ALT 23 U/L (4-34); AST 23 U/L (14-36); African American GFR (CKD) >90 (>60 ml/min/1.73 sqM); Blood Urea Nitrogen 11 mg/dL (7-17); LDH 151 U/L (120-246); Non-African American GFR(CKD) >90 (>60 ml/min/1.73 sqM); Uric Acid 5.5 mg/dL (3.7-7.4)
[2024-08-10 15:58] LABS: Appearance,Urine Cloudy (Clear); Bacteria,Urine Few /hpf; Bilirubin,Urine Negative (Negative); Blood,Urine Trace (Negative); Color,Urine Colorless; Glucose,Urine (UA) Negative (Negative); Ketones,Urine Negative (Negative); Leukocyte Esterase,Urine Small (Negative); Mucus,Urine Rare /hpf; Nitrite,Urine Negative (Negative); Protein,Urine Negative (Negative); RBC,Urine 20 /hpf (0-5); Squamous Epithelial Cell,Urine 6 /hpf (0-4); Urobilinogen,Urine <2.0 mg/dL (<2.0); WBC,Urine 17 /hpf (0-5)
[2024-08-10] MEDS ORDERED: hydrALAZINE HCL 20 MG/ML 1 ML VIAL IVP PRN (16:12)
[2024-08-10] MEDS ORDERED: LABETALOL 5 MG/ML VIAL MDV IVP PRN (16:12)
[2024-08-10] MEDS: hydrALAZINE HCL 20 MG/ML 1 ML VIAL IVP PRN (16:19)
[2024-08-10] MEDS: CITRIC ACID-SODIUM CITRATE 15 ML CUP PO ONE (16:22)
[2024-08-10] MEDS ORDERED: MORPHINE SULFATE (PF) 0.3 MG/0.3 ML SYR ONE (16:46)
[2024-08-10] MEDS ORDERED: KETOROLAC 15 MG/ML 1 ML VIAL ONE (16:46)
[2024-08-10] MEDS ORDERED: NALBUPHINE (ANES) 10 MG/ML - 1 ML AMP ONE (16:46)
[2024-08-10] MEDS ORDERED: OXYTOCIN 30 UNITS/500 ML NS BAG IV ONE (16:46)
[2024-08-10] MEDS ORDERED: ONDANSETRON 4 MG/2 ML VIAL ONE (16:46)
[2024-08-10 16:58] LABS: Creatinine,Urine Random 52.5 mg/dL; Protein/Creatinine Ratio,Urine 0.343
[2024-08-10] MEDS ORDERED: NALOXONE 0.4 MG/ML 1 ML VIAL IV PRN ×2 (17:24→18:51)
[2024-08-10] MEDS ORDERED: METOCLOPRAMIDE 5 MG/ML 2 ML VIAL IVP PRN (17:24)
[2024-08-10] MEDS ORDERED: diphenhydrAMINE 50 MG/ML 1 ML VIAL IVP PRN ×3 (17:24→18:51)
[2024-08-10] MEDS ORDERED: LANOLIN CREAM 1 GM TUBE TOPICAL PRN (17:24)
[2024-08-10] MEDS ORDERED: diphenhydrAMINE 25 MG CAP PO PRN (17:24)
[2024-08-10] MEDS ORDERED: ONDANSETRON 4 MG/2 ML VIAL IVP PRN (17:24)
[2024-08-10] MEDS ORDERED: ZOLPIDEM 5 MG TAB PO PRN (17:24)
[2024-08-10] MEDS ORDERED: diphenhydrAMINE 50 MG CAP PO PRN (17:24)
[2024-08-10] MEDS ORDERED: CALCIUM GLUCONATE 1 GM/10 ML VIAL IV PRN (17:25)
[2024-08-10] MEDS: MAGNESIUM SULFATE-WATER PMX 4 GM in WATER FOR INJECTION 1 100ML.BAG IVPB ONE (18:36)
[2024-08-10] MEDS: MAGNESIUM SULFATE-WATER PMX 20 GM in WATER FOR INJECTION 1 500ML.BAG IV SCH (18:56)
[2024-08-10] MEDS ORDERED: LABETALOL 5 MG/ML VIAL MDV IVP SCH (19:50)
[2024-08-10] MEDS: LABETALOL 5 MG/ML VIAL MDV IVP STA (20:01)
[2024-08-10] MEDS: SENNOSIDES-DOCUSATE SODIUM 1 EACH TAB PO SCH (20:02)
[2024-08-10] MEDS: LABETALOL 200 MG TAB PO SCH (21:01)
[2024-08-10] MEDS: ACETAMINOPHEN TAB 500 MG TAB PO SCH (22:07)
[2024-08-10] MEDS: LABETALOL 5 MG/ML VIAL MDV IVP PRN (22:08)
[2024-08-11] MEDS ORDERED: ACETAMINOPHEN TAB 500 MG TAB PO SCH
[2024-08-11] MEDS: KETOROLAC 15 MG/ML 1 ML VIAL IVP SCH (00:04)
[2024-08-11] MEDS: IBUPROFEN 800 MG TAB PO SCH (03:00)
[2024-08-11 06:27] LABS: Basophils % (A) 0 %; Eosinophils # (A) 0.1 k/uL (0-0.7); Eosinophils % (A) 0 %; HCT 30.3 % (34.0-46.0); HGB 10.1 gm/dL (11.4-16.0); Lymphocytes # (A) 1.6 k/uL (1.0-4.8); Lymphocytes % (A) 10 %; MCH 28.5 pg (25.0-35.0); MCHC 33.3 g/dL (31.0-37.0); MCV 85.6 fL (80.0-100.0); Mean Platelet Volume 7.7; Monocytes # (A) 0.7 k/uL (0-1.0); Monocytes % (A) 5 %; Neutrophils # (A) 13.5 k/uL (1.3-7.7); Neutrophils % (A) 84 %; Platelet Count 293 k/uL (150-450); RBC 3.53 m/uL (3.80-5.40); RDW 13.1 % (11.5-15.5); WBC 16.1 k/uL (3.8-10.6)
--- NOTE | 2024-08-11 06:53 | P.PN ---
Progress Note - Text Progress Note Date: 08/11/24 Patient was seen and examined side. Received intrathecal morphine 300 mcg for postop pain control as per surgeon request along with spinal. Today postop day 1 -status post . Today complaining her pain levels 2-3 out of 10 in severity. Able to ambulate without any difficulty. Denied any weakness. Mild itching. Physical exam: Vitals : stable vitals, afebrile Assessment and plan: S/p postop day 1 - Continue oral pain medications as needed as per primary care. Please contact anesthesia as needed.
--- NOTE | 2024-08-11 07:53 | P.HPOB ---
History of Present Illness H&P Date: 08/10/24 Chief Complaint: pre-eclampsia 29 year old presents at 36 weeks 3 days with elevated BPs. She has chronic hypertension but it is uncontrolled on the labetalol she was previously on. Labs are consistent with pre-eclampsia. She had a previous and did have celestone injections last week. Will plan for repeat low transverse today. Review of Systems All systems: negative Constitutional: Denies chills, Denies fever Eyes: denies blurred vision, denies pain Ears, nose, mouth and throat: Denies headache, Denies sore throat Cardiovascular: Denies chest pain, Denies shortness of breath Respiratory: Denies cough Gastrointestinal: Denies abdominal pain, Denies diarrhea, Denies nausea, Denies vomiting Genitourinary: Denies dysuria, Denies hematuria Musculoskeletal: Denies myalgias Integumentary: Denies pruritus, Denies rash Neurological: Denies numbness, Denies weakness Psychiatric: Denies anxiety, Denies depression Endocrine: Denies fatigue, Denies weight change Past Medical History Past Medical History: No Reported History Additional Past Medical History / Comment(s): Hypercalcemia History of Any Multi-Drug Resistant Organisms: None Reported Past Surgical History: Section, Cholecystectomy Past Anesthesia/Blood Transfusion Reactions: No Reported Reaction Past Psychological History: No Psychological Hx Reported Smoking Status: Never smoker Past Alcohol Use History: None Reported Past Drug Use History: None Reported - Past Family History Father Family Medical History: Diabetes Mellitus, Renal Disease Mother Family Medical History: No Reported History Medications and Allergies Home Medications Medication Instructions Recorded Confirmed Type Vit No.179/Iron/Folic 1 each PO DAILY 01/01/23 08/10/24 History [ Tablet] Labetalol [Trandate] 300 mg PO DAILY 07/13/24 08/10/24 History Labetalol [Trandate] 150 mg PO DAILY 08/05/24 08/10/24 History Allergies Allergy/AdvReac Type Severity Reaction Status Date / Time bee venom protein (honey bee) Allergy Anaphylaxis Verified 08/10/24 14:55 Exam Osteopathic Statement: *. No significant issues noted on an osteopathic structural exam other than those noted in the History and Physical/Consult. Vital Signs Temp Pulse Resp BP BP Pulse Ox 08/11/24 06:00 138/88 08/11/24 05:00 68 144/88 08/11/24 04:00 97.5 F L 68 14 154/93 96 08/11/24 02:58 65 153/95 08/11/24 02:43 63 152/94 08/11/24 02:11 168/109 08/11/24 02:00 97.5 F L 66 18 164/105 96 08/11/24 01:00 137/87 08/11/24 00:05 97.3 F L 65 17 141/97 96 08/10/24 23:00 67 142/98 08/10/24 22:27 161/103 08/10/24 22:12 159/102 08/10/24 22:05 64 14 171/104 08/10/24 21:00 66 14 161/106 98 08/10/24 20:00 61 16 163/103 95 08/10/24 19:35 66 16 146/88 100 08/10/24 19:20 97.3 F L 61 15 157/87 94 L 08/10/24 19:05 69 16 172/98 100 08/10/24 18:50 63 16 170/91 100 08/10/24 18:35 59 L 18 189/102 97 08/10/24 18:20 58 L 16 180/87 100 08/10/24 18:05 53 L 18 156/95 96 08/10/24 17:50 60 18 152/90 98 08/10/24 17:35 98.6 F 67 18 148/79 97 08/10/24 15:26 99.2 F 71 18 163/91 Intake and Output 08/10/24 08/11/24 08/11/24 22:59 06:59 14:59 Intake Total 450 1600 Output Total 1298 1000 Balance -848 600 Intake: Intake, IV Titration 500 Amount Magnesium Sulfate-Water 500 Pmx 20 gm In Water For Injection 1 500ml.bag @ 2 GM/HR 50 mls/hr IV .Q10H [facility] Rx#:[id number] Oral 450 1100 Output: Urine 600 Uretheral (Parra) 500 Emesis 1000 Output, Quantitative 698 Blood Loss Other: Voiding Method Indwelling Catheter Indwelling Catheter Weight 90.718 kg Heart: Regular rate and rhythm Lungs: Clear to auscultation bilaterally Abdomen: Soft, nontender Extremities: Negative Homans sign Results Result Diagrams: 08/11/24 05:43 08/10/24 15:13 Abnormal Lab Results - Last 24 Hours (Table) 08/10/24 08/10/24 08/11/24 Range/Units 15:13 15:26 05:43 WBC 11.3 H 16.1 H (3.8-10.6) k/uL RBC 3.53 L (3.80-5.40) m/uL Hgb 10.7 L 10.1 L (11.4-16.0) gm/dL Hct 32.2 L 30.3 L (34.0-46.0) % Neutrophils # 8.5 H 13.5 H (1.3-7.7) k/uL Urine Appearance Cloudy H (Clear) Urine Blood Trace H (Negative) Ur Leukocyte Esterase Small H (Negative) Urine RBC 20 H (0-5) /hpf Urine WBC 17 H (0-5) /hpf Ur Squamous Epith Cells 6 H (0-4) /hpf Urine Bacteria Few H (None) /hpf Urine Mucus Rare H (None) /hpf Assessment and Plan (1) Chronic hypertension with superimposed preeclampsia Current Visit: Yes Status: Acute Code(s): O11.9 - PRE-EXISTING HYPERTENSION WITH PRE-ECLAMPSIA, UNSP TRIMESTER SNOMED Code(s): 12453747 (2) 36 weeks gestation of Current Visit: Yes Status: Acute Code(s): Z3A.36 - 36 WEEKS GESTATION OF SNOMED Code(s): 57688641 Plan: 1. repeat low transverse
--- NOTE | 2024-08-11 07:56 | P.OP ---
Date of Procedure: 08/10/24 Preoperative Diagnosis: 1. at 36 weeks 3 days 2. chronic hypertension with superimposed pre-eclampsia 3. previous Postoperative Diagnosis: same Procedure(s) Performed: Repeat low transverse Anesthesia: spinal Surgeon: Samara Yancey Sheet Heater Helper #1: Leigh Abarca Estimated Blood Loss (ml): 500 IV fluids (ml): 800 Urine output (ml): 300 Pathology: none sent Condition: stable Disposition: floor Operative Findings: viable male, Apgars 9,9, weight 7#1oz Description of Procedure: Patient was taken to the operating room where spinal anesthesia was found be adequate. She was prepped and draped in normal sterile fashion in dorsal supine position with a leftward tilt. Pfannenstiel skin incision was made the scalpel and carried through to the underlying layer of fascia with the scalpel. Fascia was incised in midline and carried bilaterally with the Marc scissors. The superior aspect of the fascial incision was grasped with Sherie clamps elevated a nd the underlying rectus muscles dissected off with the Marc's. Attention was then turned to inferior aspect of same incision which in a similar fashion was grasped tented up and the underlying rectus muscles dissected off with the Macr's. The rectus muscles were the midline and the peritoneum was identified tented up and entered sharply with the scalpel. The incision was extended superiorly and inferiorly with good visualization of the bladder. The bladder blade was inserted and the vesicouterine peritoneum was incised the Metzenbaums then carried bilaterally and bladder flap created digitally. A low transverse incision was then made on the uterus with the scalpel. This was carried bilaterally and digital manner. Infant's head delivered atraumatically, nose and mouth bulb suctioned, cord clamped and cut, infant handed off to waiting nurses. Apgars 9,9, weight 7 lbs. 1 oz. Placenta delivered manually, intact with three-vessel cord. The uterus is exteriorized and cleared of all clots and debris. The uterine incision was closed with 0 Vicryl in a running locked fashion. Second layer of the same sutures used in imbricating fashion to obtain excellent hemostasis. Both ovaries and tubes appeared normal. The uterus was placed back into the abdomen. The peritoneum was reapproximated using 2-0 Vicryl in a running fashion. The muscles were reapproximated using 2- 0 Vicryl in interrupted fashion. The fascia was reapproximated using 0 Vicryl in a running fashion. The subcutaneous tissues closed with 3-0 Vicryl running fashion. The skin was closed aleida. Patient tolerated the procedure well, sponge and instrument counts were correct times 2 and she was taken to the recovery room in stable condition.
--- NOTE | 2024-08-11 07:58 | P.PNOBGPC ---
Subjective - Subjective Principal diagnosis: S/P repeat low transverse POD #1 Interval history: Sincerely and examined. She is on magnesium sulfate and feeling flushed nauseous. Denies chest pain shortness of breath or calf pain. She has no headache and blood pressures are controlled Patient reports: Reports pain well controlled, Reports nauseated : doing well Objective - Vital Signs Latest vital signs: Vital Signs Temp Pulse Resp BP BP Pulse Ox 08/11/24 06:00 138/88 08/11/24 05:00 68 144/88 08/11/24 04:00 97.5 F L 68 14 154/93 96 08/11/24 02:58 65 153/95 08/11/24 02:43 63 152/94 08/11/24 02:11 168/109 08/11/24 02:00 97.5 F L 66 18 164/105 96 08/11/24 01:00 137/87 08/11/24 00:05 97.3 F L 65 17 141/97 96 08/10/24 23:00 67 142/98 08/10/24 22:27 161/103 08/10/24 22:12 159/102 08/10/24 22:05 64 14 171/104 08/10/24 21:00 66 14 161/106 98 08/10/24 20:00 61 16 163/103 95 08/10/24 19:35 66 16 146/88 100 08/10/24 19:20 97.3 F L 61 15 157/87 94 L 08/10/24 19:05 69 16 172/98 100 08/10/24 18:50 63 16 170/91 100 08/10/24 18:35 59 L 18 189/102 97 08/10/24 18:20 58 L 16 180/87 100 08/10/24 18:05 53 L 18 156/95 96 08/10/24 17:50 60 18 152/90 98 08/10/24 17:35 98.6 F 67 18 148/79 97 08/10/24 15:26 99.2 F 71 18 163/91 Intake and Output 08/10/24 08/11/24 08/11/24 22:59 06:59 14:59 Intake Total 450 1600 Output Total 1298 1000 Balance -848 600 Intake: Intake, IV Titration 500 Amount Magnesium Sulfate-Water 500 Pmx 20 gm In Water For Injection 1 500ml.bag @ 2 GM/HR 50 mls/hr IV .Q10H [facility] Rx#:[id number] Oral 450 1100 Output: Urine 600 Uretheral (Parra) 500 Emesis 1000 Output, Quantitative 698 Blood Loss Other: Voiding Method Indwelling Catheter Indwelling Catheter Weight 90.718 kg - Exam Lungs: bilateral: normal Chest: Normal S1, Normal S2 Extremities: Present: normal Abdomen: Present: normal appearance, soft. Absent: distention, tenderness Incision: Present: normal, dry, intact Uterus: Present: normal, firm - Labs Labs: Abnormal Lab Results - Last 24 Hours (Table) 08/10/24 08/10/24 08/11/24 Range/Units 15:13 15:26 05:43 WBC 11.3 H 16.1 H (3.8-10.6) k/uL RBC 3.53 L (3.80-5.40) m/uL Hgb 10.7 L 10.1 L (11.4-16.0) gm/dL Hct 32.2 L 30.3 L (34.0-46.0) % Neutrophils # 8.5 H 13.5 H (1.3-7.7) k/uL Urine Appearance Cloudy H (Clear) Urine Blood Trace H (Negative) Ur Leukocyte Esterase Small H (Negative) Urine RBC 20 H (0-5) /hpf Urine WBC 17 H (0-5) /hpf Ur Squamous Epith Cells 6 H (0-4) /hpf Urine Bacteria Few H (None) /hpf Urine Mucus Rare H (None) /hpf Assessment and Plan (1) Chronic hypertension with superimposed preeclampsia Current Visit: Yes Status: Acute Code(s): O11.9 - PRE-EXISTING HYPERTENSION WITH PRE-ECLAMPSIA, UNSP TRIMESTER SNOMED Code(s): 41224406 (2) 36 weeks gestation of Current Visit: Yes Status: Ruled-out Code(s): Z3A.36 - 36 WEEKS GESTATION OF SNOMED Code(s): 57042843 (3) Status post repeat low transverse section Current Visit: Yes Status: Acute Code(s): Z98.891 - HISTORY OF UTERINE SCAR FROM PREVIOUS SURGERY SNOMED Code(s): 338153035 Plan: 1. magnesium sulfate for 24 hours 2. cont to monitor BPs 3. bedrest on mag. 4. seizure precautions 5. pain control
[2024-08-11] MEDS: SIMETHICONE 80 MG CHEWABLE PO PRN (23:42)
[2024-08-12] MEDS ORDERED: IBUPROFEN 800 MG TAB PO SCH
[2024-08-12 07:56] VITALS: PULSE 98; RESP 14; TEMP 99.4
--- NOTE | 2024-08-12 12:37 | P.DS ---
Providers Date of admission: 08/10/24 14:40 Expected date of discharge: 08/12/24 Attending physician: Samara Yancey Primary care physician: Stated None - Discharge Diagnosis(es) (1) Chronic hypertension with superimposed preeclampsia Current Visit: Yes Status: Acute (2) 36 weeks gestation of Current Visit: Yes Status: Ruled-out (3) Status post repeat low transverse section Current Visit: Yes Status: Acute Hospital Course: Patient presented with Chronic hypertension with superimposed preeclampsia and underwent a repeat low transverse at 36 weeks and 3 days. Her blood pressure is been controlled with labetalol 200 mg twice a day. She was on magnesium sulfate for 24 hours after delivery. Patient now denies nausea, vomiting, chest pain, shortness of breath or calf pain. She'll be discharged home postoperative day #2 in stable condition. Went over all the preeclamptic precautions and when she come back to the hospital. She will follow-up with me in 2 weeks for blood pressure check. Plan - Discharge Summary New Discharge Prescriptions: New RX: Labetalol [Trandate] 200 mg PO BID #60 tab RX: Ibuprofen [Motrin] 600 mg PO Q6HR PRN #30 tab PRN Reason: Mild Pain Or Fever >= 100.5 Discontinued RX: Labetalol [Trandate] 300 mg PO DAILY RX: Labetalol [Trandate] 150 mg PO DAILY No Action Vit No.179/Iron/Folic [ Tablet] 1 each PO DAILY Discharge Medication List Vit No.179/Iron/Folic [ Tablet] 1 each PO DAILY 01/01/23 [History] RX: Ibuprofen [Motrin] 600 mg PO Q6HR PRN #30 tab 08/12/24 [Rx] RX: Labetalol [Trandate] 200 mg PO BID #60 tab 08/12/24 [Rx] Follow up Appointment(s)/Referral(s): Samara Yancey DO [Doctor of Osteopathic Medicine] - 08/25/24 11:15 am (Post appointment 09-22-2024 at 1:15pm) Patient Instructions/Handouts: Seizure/Epilepsy Discharge Instructions & Follow-Up Discharge Disposition: HOME SELF-CARE
[2024-08-12 13:05] VITALS: BP 143/90
== END 2024-08-12 15:30 | disposition home or self-care (01) | DRG 540 ==
LOC: 4FBP 14:40
PROVIDERS: ADMIT Obstetrics & Gynecology; ATTEND Obstetrics & Gynecology
PROC: 10D00Z1 Extraction of Products of Conception, Low, Open Approach (ICD-10-PCS; principal; 2024-08-10 16:30)
DX: O11.4 Pre-existing hypertension with pre-eclampsia, complicating childbirth (principal); O34.211 Maternal care for low transverse scar from previous cesarean delivery; Z3A.36 36 weeks gestation of pregnancy; Z37.0 Single live birth; R11.0 Nausea
CPT/HCPCS: 81001; 82565; 82570; 83615; 84156; 84450; 84460; 84520; 84550; 85025; 85610; 86850; 86900; 86901